=== PATIENT | female | born 1955 | race Caucasian/White ===

== ENCOUNTER 2023-02-16 15:06 | Emergency (ER) | payer OTHER ==
[2023-02-16] MEDS ORDERED: Sodium Chloride 0.9% 10 ML Syringe FLUSH PRN (15:23)
[2023-02-16] MEDS ORDERED: Sodium Chloride 0.9% 1,000 ML IV SCH (15:30)
[2023-02-16 15:31] LABS: BASOPHILS ABSOLUTE AUTO 0.01 K/mm3 (0.01-0.08); BASOPHILS PERCENT AUTO 0.1 % (0.1-1.2); EOSINOPHILS ABSOLUTE AUTO 0.14 K/mm3 (0.04-0.36); EOSINOPHILS PERCENT AUTO 1.9 (0.7-5.8); HEMOGLOBIN 13.9 gm/dl (11.2-15.7); IMMATURE GRAN ABSOLUTE AUTO 0.05 K/mm3 (0.00-0.10); IMMATURE GRAN PERCENT AUTO 0.7 % (<=1.0); LYMPHOCYTES ABSOLUTE AUTO 1.72 K/mm3 (1.18-3.74); LYMPHOCYTES PERCENT AUTO 23.2 % (19.3-51.7); MEAN CORPUSCULAR HEMOGLOBIN 30.5 pg (25.6-32.2); MEAN CORPUSCULAR HGB CONC 34.8 g/dl (32.2-35.5); MEAN CORPUSCULAR VOLUME 87.9 fl (79.4-94.8); MEAN PLATELET VOLUME 9.5 fl (9.4-12.3); MONOCYTES ABSOLUTE AUTO 0.56 K/mm3 (0.24-0.36); MONOCYTES PERCENT AUTO 7.5 % (4.7-12.5); NEUTROPHILS ABSOLUTE AUTO 4.94 K/mm3 (1.56-6.13); NEUTROPHILS PERCENT AUTO 66.6 % (34.0-71.1); PLATELET COUNT,PLT 359 K/mm3 (182-369); RED BLOOD CELL COUNT 4.55 M/mm3 (3.98-5.22); WHITE BLOOD CELL COUNT,WBC 7.42 K/mm3 (3.98-10.04)
[2023-02-16] MEDS ORDERED: Ondansetron 4 MG/2 ML SDV ONE (15:40)
[2023-02-16] MEDS ORDERED: Ondansetron 4 MG/2 ML SDV IVPUSH ONE (15:41)
[2023-02-16 16:01] LABS: INR 0.95; PROTHROMBIN TIME 10.2 SECONDS (9.7-12.0)
[2023-02-16 16:05] LABS: A/G RATIO 1.2 (1-2); ALBUMIN 3.9 g/dl (3.4-5.0); ANION GAP 17.9 (5-15); BILIRUBIN TOTAL 0.5 mg/dL (0.2-1.0); C-REACTIVE PROTEIN 0.3 mg/dL (<1.0); CALCIUM 9.7 mg/dL (8.5-10.1); CREATININE 1.2 mg/dL (0.55-1.02); EST CRCL DRUG DOSING (CG) 48.52 mL/min; MAGNESIUM 1.9 mg/dL (1.8-2.4); POTASSIUM,K 3.9 mEq/L (3.5-5.1); PROTEIN TOTAL,TP 7.2 g/dl (6.4-8.2)
[2023-02-16] MEDS ORDERED: levETIRAcetam 1,000 MG in Sodium Chloride 0.9% 100 ML IV ONE (16:38)
[2023-02-16] MEDS ORDERED: Labetalol 100 MG/20 ML MDV IVPUSH ONE (17:29)
== END 2023-02-16 17:57 ==
LOC: JD.ED 15:06
DX: G40.409 Other generalized epilepsy and epileptic syndromes, not intractable, without status epilepticus (principal); S06.5XAA Traumatic subdural hemorrhage with loss of consciousness status unknown, initial encounter; I10 Essential (primary) hypertension; E11.9 Type 2 diabetes mellitus without complications
CPT/HCPCS: 36415; 70450; 71045; 80053; 80307; 82550; 82947; 83735; 84484; 85025; 85610; 85652; 85730; 86140; 93005; 96361; 96365; 96375; 99285; J1953; J2405; J3490; J7030; 93010; 99291